=== PATIENT | male | born 1930 | race Hispanic/Latino ===

== ENCOUNTER 2017-10-28 17:25 | Inpatient (IN) | payer MEDICARE ==
[2017-10-28 18:16] LABS: #Eosinphils 0.2 thou/uL (0.0-0.7); #Lymphocytes 1.7 thou/uL (1.20-3.40); #Monocytes 0.4 thou/uL (0.11-0.59); #Neutrophils 3.5 thou/uL (1.40-6.50); %Basophils 0.2 % (0.0-1.0); %Lymphocytes 29.6 % (21.0-51.0); %Monocytes 6.5 % (0.0-10.0); Hematocrit 33.7 % (42.0-52.0); Mean Platelet Volume 7.5 fL (7.4-10.4); White Blood Cell (WBC) Count 5.8 thou/uL (4.8-10.8)
[2017-10-28] MEDS ORDERED: Adacel (T-DAP) 0.5 ML VIAL ONE (18:21)
[2017-10-28] MEDS ORDERED: Lidocaine 1% (PF) 30 ML VIAL ONE (18:21)
[2017-10-28 18:24] LABS: PTT 34.8 SEC (22.9-36.1); Prothrombin Time 14.2 SEC (12.0-14.7)
[2017-10-28 18:42] LABS: ALT (SGPT) 12 U/L (8-55); AST (SGOT) 20 U/L (5-34); Alkaline Phosphatase 138 U/L (40-150); Anion Gap 12 mmol/L (10-20); BUN (Urea Nitrogen) 42 mg/dL (8.4-25.7); Bilirubin, Total 0.4 mg/dL (0.2-1.2); Calc. Creatinine Clearance 0 mL/min (70-130); Calcium 8.8 mg/dL (7.8-10.44); Carbon Dioxide 22 mmol/L (23-31); Chloride 109 mmol/L (98-107); Estimated GFR-MDRD 27; Globulin 3.8 g/dL (2.4-3.5); Protein, Total 7.5 g/dL (5.8-8.1)
[2017-10-28 18:47] LABS: Troponin I 0.013 ng/mL (< 0.028)
--- NOTE | 2017-10-28 19:34 | CT ---
HISTORY: Syncope and fall. NONCONTRAST ENHANCED CT IMAGES BRAIN 10/28/[address] images of the brain demonstrate a right frontal scalp hematoma. No underlying calvarial fracture seen. No evidence of intracranial masses or lesions seen. Cortical atrophy and de ep white matter ischemic change is seen. There is also some cerebellar atrophy present. IMPRESSION: Right frontal scalp hematoma. POS: [facility]
--- NOTE | 2017-10-28 19:49 | RAD ---
AP VIEW CHEST 10/28/17 HISTORY: 87-year-old male with history of syncope. AP view chest is obtained on 10/28/17. COMPARISON: Comparison made to previous exam from 02/24/15. AP view chest demonstrates sternotomy wires seen. Calcification and ectasia of the aorta is seen. The lungs are well aerated. No evidence of active intrathoracic disease seen. No evidence of effusions, pneumonia or pneumothorax seen. 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 IMPRESSION: No evidence of acute intrathoracic abnormality. POS: [facility]
[2017-10-28] MEDS ORDERED: hydrALAZINE 20 MG/ML VIAL ONE (20:39)
--- NOTE | 2017-10-28 21:24 | CT ---
CT CERVICAL SPINE 10/28/17 HISTORY: 87-year-old with history of fall. Facial laceration. Hit head on a table. Axial images are obtained with coronal and sagittal reconstructions. Images demonstrate partially calcified pannus involving the posterior aspect of the odontoid. No evid ence of acute fracture is seen. Disc space height loss is seen with anterior and posterior osteophyte s at the C3-4 level. There is minimal anterolisthesis of C4 on C5. There is cervical spine fusion anteriorly and posteriorly at C5-6. Anterior bridging osteophytes also seen at C6-7 and C7-T1. Multilevel central cervical facet hypertrophic and degenerative changes also seen. IMPRESSION: No evidence of acute cervical spine fractures. Multilevel cervical degenerative changes seen involvin g facets and intervertebral disc spaces. Also noted is a small right sided pleural effusion. POS: [facility]
--- NOTE | 2017-10-28 21:39 | PDOC.EVN ---
Event Note - Event Note Event Note: [id number] H&P Dictated 1. Syncope 2. HTN 3. HPL 4. Hypothyroidism plan: see orders
[2017-10-28 21:42] LABS: Troponin I 0.019 ng/mL (< 0.028)
[2017-10-28] MEDS ORDERED: Acetaminophen 325 MG TAB PO PRN (21:42)
[2017-10-28] MEDS ORDERED: Ondansetron HCl/PF 4 MG/2 ML Vial IVP PRN (21:42)
[2017-10-28] MEDS ORDERED: Ondansetron ODT 4 MG TAB SL PRN (21:42)
[2017-10-28] MEDS ORDERED: cloNIDine 0.2 MG TAB PO PRN (22:45)
[2017-10-28] MEDS: Sodium Chloride 0.9% 1,000 ML IV SCH (23:28)
--- NOTE | 2017-10-28 23:59 | ULT ---
CAROTID DOPPLER ULTRASOUND EVALUATION: 10/28/17 HISTORY: Patient with carotid stenosis and bruits. Carotid doppler ultrasound evaluation was performed. Real time, color flow with spectral waveform dop pler analysis used to evaluate the carotid arteries. There is diffuse intimal thickening involving the right and left common and internal carotid arteries . Flow velocities are not significantly increased. Findings suggestive of approximately 20% bilateral distal CCA and proximal ICA stenosis. No evidence of significant carotid stenosis is noted. Antegrad e flow is seen in both vertebral arteries. 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 No evidence of increased flow velocities or significant high grade stenosis is seen. POS: [facility]
[2017-10-29 01:06] LABS: Troponin I 0.023 ng/mL (< 0.028)
[2017-10-29] MEDS: Levothyroxine Sodium 100 MCG TAB PO SCH (05:35)
--- NOTE | 2017-10-29 06:14 | HP ---
DATE OF ADMISSION: 10/28/2017 CHIEF COMPLAINT: Syncope. HISTORY OF PRESENT ILLNESS: The patient is an 87-year-old male with past medical history of hypertension, CKD, hypothyroidism, hyperlipidemia, now came to the ER complaining of syncope. The patient said he was at home, putting his cloths while sitting on the bed, and all of sudden he fell forward, lost consciousness, the whole episode lasted only a few seconds. Once he regained consciousness, he is not confused, but the patient does not know what happened. Denies any chest pain, denies any palpitations. Prior to passing out, the patient said he felt lightheaded and he fell forward. Upon ER arrival, the patient was found to have right forehead laceration, so the patient had sutures placed. The patient denies any headache. Denies any dizziness. Denies any lightheadedness at this time. Complaints of mild headache prior from the fall, but denies any new complaints at this time. PAST MEDICAL HISTORY: As per HPI. PAST SURGICAL HISTORY: CABG. FAMILY HISTORY: Positive for heart problems. SOCIAL HISTORY: Denies smoking, denies alcohol, denies any drugs. MEDICATIONS: Reviewed. ALLERGIES: Reviewed. REVIEW OF SYSTEMS: Constitutional: Denies any fever, denies any chills. Eyes : Denies any vision problems. Ears: Denies any hearing loss. Neck: Denies any neck pain. Cardiovascular system: Denies any chest pain. Respiratory system: Denies any cough, denies sputum production. Gastrointestinal: Denies nausea or vomiting. Musculoskeletal: Denies any joint deformities. Cranial nerve system: Positive for syncope. Face: Positive for fall and scalp laceration. Cranial nerve system: Positive for headache. Psychiatric: Denies depression or anxiety. All other review of systems are reviewed and are negative. PHYSICAL EXAMINATION: CONSTITUTIONAL/VITAL SIGNS: At the time of H&P performed, blood pressure 180/90 , afebrile, respiratory rate 18. GENERAL APPEARANCE: This patient appears tired. HEENT: Anterior nares patent. Nose normal. Teeth intact. Tongue is moist. NECK: Supple, no JVD. CARDIOVASCULAR SYSTEM: S1, S2 present. Regular rate and rhythm. No murmurs, no rubs, no gallops. CHEST: Old healed scar present. RESPIRATORY SYSTEM: No wheezing, no rhonchi. normal effort, breath sounds present bilaterally. FACE: On the right forehead, positive for laceration, positive for sutures present. Right face, small ecchymosis seen. PSYCHIATRIC: Mood is appropriate at this time. INTEGUMENTARY: Positive for right face bruising. MUSCULOSKELETAL: No edema. LABORATORY DATA: At the time of H&P performed, white count 5.8, hemoglobin 10.8 , platelet count is 208. PT 14.2, INR 1.1. BMP showed sodium 138, potassium 4.5, chloride 109, CO2 of 22, BUN of 42, creatinine 2.30. Baseline creatinine is around 1.5 in 2016. BNP 525. ASSESSMENT AND PLAN: The patient is an 87-year-old male. 1. Syncope, need to rule out cardiac etiology. Plan to check cardiac enzymes. Plan to consult Cardiology and Neurology to evaluate the patient. Plan to monitor the patient closely. 2. History of hypertension. Monitor blood pressures, continue blood pressure medications. 3. Acute kidney injury versus chronic kidney disease, stage 3. Monitor creatinine. Gentle IV fluids. Repeat BMP in a.m. BNP is elevated. Monitor closely. It does not appear fluid overloaded at this time. 4. History of hypothyroidism. Continue levothyroxine. 5. History of hyperlipidemia. Continue statin. The case was discussed in detail with the patient. NUBIA
[2017-10-29 06:25] LABS: Troponin I 0.023 ng/mL (< 0.028)
[2017-10-29] MEDS ORDERED: Heparin 5,000 UNITS/ML VIAL SC SCH (09:00)
[2017-10-29] MEDS ORDERED: Atenolol 25 MG TAB PO SCH (09:00)
[2017-10-29 09:12] LABS: Anion Gap 10 mmol/L (10-20); BUN (Urea Nitrogen) 40 mg/dL (8.4-25.7); Calc. Creatinine Clearance 29 mL/min (70-130); Calcium 8.5 mg/dL (7.8-10.44); Carbon Dioxide 21 mmol/L (23-31); Chloride 111 mmol/L (98-107); Estimated GFR-MDRD 36
[2017-10-29 09:17] LABS: #Eosinphils 0.2 thou/uL (0.0-0.7); #Lymphocytes 1.5 thou/uL (1.20-3.40); #Monocytes 0.4 thou/uL (0.11-0.59); #Neutrophils 3.2 thou/uL (1.40-6.50); %Basophils 0.6 % (0.0-1.0); %Eosinophils 4.4 % (0.0-10.0); %Lymphocytes 28.1 % (21.0-51.0); %Monocytes 6.9 % (0.0-10.0); Hematocrit 28.6 % (42.0-52.0); Mean Platelet Volume 7.8 fL (7.4-10.4); White Blood Cell (WBC) Count 5.4 thou/uL (4.8-10.8)
[2017-10-29] MEDS: Aspirin 81 mg Enteric Coated Tablet PO SCH (09:47)
--- NOTE | 2017-10-29 12:33 | PDOC.PN ---
- Subjective Encounter Start Date: 10/29/17 Encounter Start Time: 08:00 Pt seen for followup re: syncope. Denies chest pain, shortness of breath, fevers or chills. - Objective MAR Reviewed: Yes Vital Signs & Weight: Vital Signs (12 hours) Temp Pulse Resp BP Pulse Ox 10/29/17 11:00 97.7 F 50 L 18 139/66 98 10/29/17 10:22 51 L 10/29/17 07:20 98.5 F 53 L 18 129/63 99 10/29/17 04:00 97.5 F L 53 L 20 152/65 H 100 10/29/17 01:34 124/55 L Weight Weight 160 lb I&O: 10/28/17 10/29/17 10/30/17 06:59 06:59 06:59 Intake Total 543 Output Total 550 Balance -7 Result Diagrams: 10/29/17 05:43 10/29/17 05:43 EKG Reviewed by me: Yes (Tele: jaki gtz) Phys Exam - Physical Examination Constitutional: NAD HEENT: PERRLA, moist MMs, sclera anicteric, oral pharynx no lesions Neck: no nodes, no JVD, supple, full ROM Respiratory: no wheezing, no rales, no rhonchi, clear to auscultation bilateral Cardiovascular: RRR, no rub Gastrointestinal: soft, non-tender, no distention, positive bowel sounds Musculoskeletal: pulses present Neurological: moves all 4 limbs Lymphatic: no nodes Psychiatric: normal affect, A&O x 3 Skin: no rash, normal turgor, cap refill <2 seconds Dx/Plan (1) Syncope Code(s): R55 - SYNCOPE AND COLLAPSE Status: Acute (2) HTN (hypertension) Code(s): I10 - ESSENTIAL (PRIMARY) HYPERTENSION Status: Chronic (3) CKD (chronic kidney disease) Code(s): N18.9 - CHRONIC KIDNEY DISEASE, UNSPECIFIED Status: Chronic (4) Dyslipidemia Code(s): E78.5 - HYPERLIPIDEMIA, UNSPECIFIED Status: Chronic (5) CAD (coronary artery disease) Code(s): I25.10 - ATHSCL HEART DISEASE OF [place] CORONARY ARTERY W/O ANG PCTRS Status: Chronic - Plan plan discussed w/ family, DVT proph w/SCDs * . Workup in progress for syncope. Await neurology, cardiology consults. Await 2D echo. Check orthostatic vitals. Review of Systems - Review of Systems Constitutional: negative: Fever, Chills, Sweats, Weakness, Malaise Respiratory: negative: Cough, Dry, Shortness of Breath, Hemoptysis, SOB with Excertion, Pleuritic Pain, Sputum, Wheezing Cardiovascular: negative: Chest Pain, Palpitations, Orthopnea, Paroxysmal Noc. Dyspnea, Edema, Light Headedness Gastrointestinal: negative: Nausea, Vomiting, Abdominal Pain, Diarrhea, Constipation, Melena, Hematochezia Genitourinary: negative: Dysuria, Frequency, Incontinence, Hematuria, Retention Neurological: Other (syncope) - Medications/Allergies Allergies/Adverse Reactions: Allergies Allergy/AdvReac Type Severity Reaction Status Date / Time No Known Allergies Allergy Verified 02/25/15 00:25 Medications: Current Medications Aspirin (Ecotrin) 81 mg PO DAILY [facility] Last Admin: 10/29/17 09:47 Dose: 81 mg Atenolol (Tenormin) 25 mg PO DAILY [facility] Last Admin: 10/29/17 10:22 Dose: Not Given Atorvastatin Calcium (Lipitor) 40 mg PO HS [facility] Clonidine (Catapres) 0.1 mg PO HS [facility] Clonidine (Catapres) 0.2 mg PO Q8H PRN PRN Reason: FOR SBP > 160 Last Admin: 10/28/17 23:27 Dose: 0.2 mg Heparin Sodium (Porcine) (Heparin) 5,000 units SC Q12HR [facility] Last Admin: 10/29/17 10:23 Dose: Not Given Sodium Chloride (Normal Saline 0.9%) 1,000 mls @ 50 mls/hr IV .Q20H [facility] Last Admin: 10/28/17 23:28 Dose: 1,000 mls Levothyroxine Sodium (Synthroid) 100 mcg PO 0600 [facility] Last Admin: 10/29/17 05:35 Dose: 100 mcg Mirtazapine (Remeron) 15 mg PO HS [facility]
--- NOTE | 2017-10-29 17:45 | MRI ---
MRI OF THE BRAIN WITHOUT CONTRAST 10/29/17 COMPARISON: None. HISTORY: Stroke. TECHNIQUE: Multiplanar and multisequence MRI images were obtained of the brain without contrast. FINDINGS: There are a few scattered foci of high T2/FLAIR signal and subcortical and periventricular white jose er, likely secondary to small vessel ischemic disease. No restricted diffusion is seen to suggest an acute infarction. There is no evidence of hydrocephalus, intracranial hemorrhage, or extra-axial flui d collection. The expected flow voids are present. The corpus callosum, pituitary, and craniocervical junction are unremarkable. The calvarium and overlying soft tissues are unremarkable. There is no evidence of opacification of t he paranasal sinuses or mastoid air cells. IMPRESSION: Mild small vessel ischemic disease without acute intracranial abnormality. POS: [facility]
--- NOTE | 2017-10-29 18:46 | CON ---
DATE OF CONSULTATION: 10/29/2017 REASON FOR CONSULTATION: Syncope and bradycardia. HISTORY OF PRESENT ILLNESS: Mr. Florez is a pleasant 87-year-old gentleman, who is a patient of Dr. Ehsan Funk. He recently states he had a syncopal episode. Denied any syncope in the past. His son is present during the discussion and states he has not taken any of his medications over the las t month. His medications do reflect clonidine and atenolol, which can cause bradycardia, but again m edicines have absent over the last one month. His syncopal episode there was no warning. No chest p ain or pressure or other associated symptoms. He does have a history of CAD, status post bypass surg dave. PAST MEDICAL HISTORY: Chronic kidney disease, hypertension, hypothyroidism, CAD, hyperlipidemia, sta tus post bypass surgery. SOCIAL HISTORY: No current tobacco or alcohol use. MEDICATIONS: None over the last one month. REVIEW OF SYSTEMS: Ten point review of systems is reviewed and is as above negative. PHYSICAL EXAMINATION: VITAL SIGNS: Blood pressure 165/71, pulse 50, temperature 97.7. GENERAL: Patient is a pleasant male who is in no acute distress. The patient appears his/her stated age. VITAL SIGNS: NEUROLOGIC: The patient is alert and oriented times 3 with no focal neurologic deficits. HEENT: Sclerae without icterus. Mouth has moist mucous membranes with normal pallor. NECK: No JVD. Carotid upstroke brisk. No bruits bilaterally. LUNGS: Clear to auscultation with unlabored respirations. BACK: No scoliosis or kyphosis. CARDIAC: Regular rate and rhythm with normal S1 and S2. No S3 or S4 noted. No significant rubs, murmurs, thrills, or gallops noted throughout the precordium. PMI is not displaced. There is no parasternal heave. ABDOMEN: Soft, nontender, nondistended. No peritoneal signs present. No hepatosplenomegaly. No abnormal striae. EXTREMITIES: 2+ femoral and 2+ dorsalis pedis pulses. No cyanosis, clubbing, or edema. SKIN: No gross abnormalities. Telemetry monitoring shows marked bradycardia. PERTINENT LABS: Hemoglobin 9.4, creatinine 1.8 with a GFR of 36. BNP of 525. Echo and Doppler pending. IMPRESSION: Syncope. RECOMMENDATIONS: Mr. Florez appears to have bradycardia noted on telemetry monitoring. He is on ulices nidine and atenolol, but he states he has not taken over the last month. Unfortunately, Dr. Talbot restarted his clonidine and atenolol and he has been bradycardic on the monitor with heart rate in t he 30s and 40s. At this point, we will discontinue clonidine and atenolol. We will keep n.p.o. to a ssess for any further dysrhythmias. He may need pacemaker if this continued despite beta hattie the rapy and being off beta hattie therapy and clonidine.
--- NOTE | 2017-10-29 20:15 | CON ---
DATE OF CONSULTATION: 10/29/2017 REFERRING PROVIDER: Tong Talbot MD REASON FOR CONSULTATION: Syncope. HISTORY OF PRESENT ILLNESS: Mr. Florez is a pleasant 87-year-old male who has been consulte d for evaluation of syncope. The patient reports that he was at home trying to put on his clothes. He had put on his pants and sat down and then when he stood up, he suddenly passed out and fall to th e ground. He was unconscious for less than 30 seconds. There were no convulsions noted. There was no tongue biting noted. No loss of bladder control noted. He had no postictal confusion. His son prabha reyes witnessed the event and brought into the hospital as he had lacerated his right side of the forehe ad and had a lot of bleeding from that area for which he required sutures. On arrival here, he repor ts he has no prior history of seizure disorder. No prior history of trauma or family history of seiz ures. PAST MEDICAL HISTORY: Significant for hypertension, chronic kidney disease, hypothyroidism, and hype rlipidemia. PAST SURGICAL HISTORY: Significant for previous CABG. FAMILY HISTORY: Significant for heart problems. SOCIAL HISTORY: He denies smoking, alcohol use, or illicit drug use. CURRENT MEDICATIONS: Please review MAR. ALLERGIES: No known drug allergies. REVIEW OF SYSTEMS: As mentioned above in the HPI, otherwise negative. PHYSICAL EXAMINATION: VITAL SIGNS: Blood pressure of 165/71, orthostatic vitals were obtained, which showed blood pressure of 165/71 at supine, 143/62 at sitting, and then 122/58 at standing position, pulse of 57, temperatu re of 97.3, respirations of 16, O2 sats 99% on room air. GENERAL: Well-developed, well-nourished male, in no apparent distress. RESPIRATORY: Clear to auscultation bilaterally. CARDIOVASCULAR: Regular rate and rhythm. NEUROLOGIC: Mental status: The patient is awake, alert, oriented x3. Speech and language: Fluent speech. Cranial nerves: Pupils are 3 mm and reactive. Visual felix are intact. Extraocular muscl es are intact. No nystagmus is noted. Face is symmetric. Tongue and uvula are midline. Motor exam showed normal tone and bulk with 5/5 strength in both upper and lower extremities. Babinski: Plant ar response is flexion bilaterally. Coordination intact to [id number] tapping bilaterally. LABORATORY DATA: Reviewed, which included CBC, coag panel, CMP, lipid profile, troponin, CK-MB, BNP which is significant for hemoglobin 9.4, hematocrit 28.6, BUN of 40, creatinine 1.1. BNP of 525.8, o therwise unremarkable. IMAGING STUDIES: MRI brain without contrast was reviewed. Official report is pending; however, on m y evaluation showed no acute intracranial abnormality. IMPRESSION: Syncope. PLAN: Mr. Florez is a pleasant 87-year-old male who presented with the episode of syncope. Based on the description, this is likely vasovagal in origin. He had orthostatic vitals done today, which showed significant drop in blood pressure when going from supine to standing position, this co uld be consistent with vasovagal syncope. At this time, there are no further neurological workup drew carvajal from my standpoint.
[2017-10-29] MEDS ORDERED: cloNIDine 0.1 MG TAB PO SCH (21:00)
[2017-10-29] MEDS: Atorvastatin Calcium 40 MG TAB PO SCH (21:39)
[2017-10-29] MEDS: Sodium Chloride 0.9% 1,000 ML IV SCH (21:39)
[2017-10-29] MEDS: Mirtazapine 15 MG TAB PO SCH (21:39)
[2017-10-30 04:44] LABS: #Eosinphils 0.3 thou/uL (0.0-0.7); #Lymphocytes 1.4 thou/uL (1.20-3.40); #Monocytes 0.4 thou/uL (0.11-0.59); #Neutrophils 3.6 thou/uL (1.40-6.50); %Basophils 0.2 % (0.0-1.0); %Eosinophils 5.1 % (0.0-10.0); %Monocytes 6.3 % (0.0-10.0); Hematocrit 29.4 % (42.0-52.0); Mean Platelet Volume 7.3 fL (7.4-10.4); Red Blood Cell (RBC) Count 2.89 mill/uL (4.70-6.10); White Blood Cell (WBC) Count 5.7 thou/uL (4.8-10.8)
[2017-10-30 05:03] LABS: Anion Gap 9 mmol/L (10-20); BUN (Urea Nitrogen) 38 mg/dL (8.4-25.7); Calc. Creatinine Clearance 32 mL/min (70-130); Calcium 8.6 mg/dL (7.8-10.44); Carbon Dioxide 22 mmol/L (23-31); Chloride 112 mmol/L (98-107); Estimated GFR-MDRD 40
[2017-10-30] MEDS: Levothyroxine Sodium 100 MCG TAB PO SCH (06:05)
[2017-10-30] MEDS: Aspirin 81 mg Enteric Coated Tablet PO SCH ×2 (09:48→14:21)
--- NOTE | 2017-10-30 10:12 | PDOC.PN ---
- Subjective Encounter Start Date: 10/30/17 Encounter Start Time: 07:20 Pt seen for followup re: syncope. Denies chest pain, shortness of breath. No dizziness. - Objective MAR Reviewed: Yes Vital Signs & Weight: Vital Signs (12 hours) Temp Pulse Resp BP Pulse Ox 10/30/17 09:55 98.6 F 80 16 158/85 H 98 10/30/17 04:25 98 10/30/17 04:00 99.2 F 68 20 161/74 H 98 10/30/17 00:40 99 10/30/17 00:00 98.6 F 59 L 18 170/77 H 99 Weight Weight 158 lb 8 oz I&O: 10/29/17 10/30/17 10/31/17 06:59 06:59 06:59 Intake Total 543 741 Output Total 550 600 Balance -7 141 Result Diagrams: 10/30/17 04:11 10/30/17 04:11 EKG Reviewed by me: Yes (Tele: a. tresa) Phys Exam - Physical Examination Constitutional: NAD HEENT: PERRLA, moist MMs, sclera anicteric, oral pharynx no lesions Neck: no nodes, no JVD, supple, full ROM Respiratory: no wheezing, no rales, no rhonchi, clear to auscultation bilateral Cardiovascular: no rub, irregular Gastrointestinal: soft, non-tender, no distention, positive bowel sounds Musculoskeletal: pulses present Neurological: non-focal, normal sensation, moves all 4 limbs Psychiatric: normal affect, A&O x 3 Skin: no rash, normal turgor, cap refill <2 seconds Deviation from normal: Sutured laceration above R eye Dx/Plan (1) Syncope Code(s): R55 - SYNCOPE AND COLLAPSE Status: Acute (2) HTN (hypertension) Code(s): I10 - ESSENTIAL (PRIMARY) HYPERTENSION Status: Chronic (3) CKD (chronic kidney disease) Code(s): N18.9 - CHRONIC KIDNEY DISEASE, UNSPECIFIED Status: Chronic (4) Dyslipidemia Code(s): E78.5 - HYPERLIPIDEMIA, UNSPECIFIED Status: Chronic (5) CAD (coronary artery disease) Code(s): I25.10 - ATHSCL HEART DISEASE OF [place] CORONARY ARTERY W/O ANG PCTRS Status: Chronic - Plan PT/OT, DVT proph w/SCDs * . Heart rate improved, pt's atenolol on hold. Pt has orthostatic hypotension, check 8 AM cortisol level. Apply compression stockings. Monitor on telemetry. Monitor vital signs, titrate antihypertensives as needed. Creatinine improving. Review of Systems - Review of Systems Constitutional: negative: Fever, Chills, Sweats, Weakness, Malaise Respiratory: negative: Cough, Dry, Shortness of Breath, Hemoptysis, SOB with Excertion, Pleuritic Pain, Sputum, Wheezing Cardiovascular: negative: Chest Pain, Palpitations, Orthopnea, Paroxysmal Noc. Dyspnea, Edema, Light Headedness Gastrointestinal: negative: Nausea, Vomiting, Abdominal Pain, Diarrhea, Constipation, Melena, Hematochezia Genitourinary: negative: Dysuria, Frequency, Incontinence, Hematuria, Retention - Medications/Allergies Allergies/Adverse Reactions: Allergies Allergy/AdvReac Type Severity Reaction Status Date / Time No Known Allergies Allergy Verified 02/25/15 00:25 Medications: Current Medications Aspirin (Ecotrin) 81 mg PO DAILY [facility] Last Admin: 10/30/17 09:48 Dose: 81 mg Atorvastatin Calcium (Lipitor) 40 mg PO HS [facility] Last Admin: 10/29/17 21:39 Dose: 40 mg Clonidine (Catapres) 0.2 mg PO Q8H PRN PRN Reason: FOR SBP > 160 Last Admin: 10/28/17 23:27 Dose: 0.2 mg Sodium Chloride (Normal Saline 0.9%) 1,000 mls @ 50 mls/hr IV .Q20H [facility] Last Admin: 10/29/17 21:39 Dose: 1,000 mls Levothyroxine Sodium (Synthroid) 100 mcg PO 0600 [facility] Last Admin: 10/30/17 06:05 Dose: 100 mcg Mirtazapine (Remeron) 15 mg PO HS [facility] Last Admin: 10/29/17 21:39 Dose: 15 mg Sodium Chloride (Flush - Normal Saline) 10 ml IVF Q12HR [facility] Last Admin: 10/30/17 09:48 Dose: 10 ml Sodium Chloride (Flush - Normal Saline) 10 ml IVF PRN PRN PRN Reason: Saline Flush
[2017-10-30] MEDS ORDERED: Acetaminophen 650 MG Suppository PR PRN (11:26)
[2017-10-30] MEDS ORDERED: Acetaminophen 650 MG Suppository PR SCH (12:00)
[2017-10-30] MEDS ORDERED: hydrALAZINE 20 MG/ML VIAL SLOW IVP SCH (14:30)
[2017-10-30] MEDS ORDERED: CEFAZOLIN 1 GM VIAL ONE (16:06)
[2017-10-30] MEDS ORDERED: CEFAZOLIN/Water 2 GM/20 ML SYRINGE ONE (16:07)
[2017-10-30] MEDS ORDERED: Gentamicin 80 MG/2 ML VIAL ONE (16:50)
--- NOTE | 2017-10-30 16:56 | PDOC.CTH ---
Cardiology Progress Note - Subjective He is doing well. No more episode of syncope or presyncope. - Objective Vital Signs Temp Pulse Resp BP BP BP BP 10/30/17 15:08 98.5 F 84 17 166/74 H 10/30/17 14:40 86 141/84 H 10/30/17 12:53 186/87 H 181/77 H 187/87 H 10/30/17 11:17 97.9 F 72 17 173/83 H 10/30/17 09:55 98.6 F 80 16 158/85 H 10/30/17 08:22 98.6 F 80 16 Pulse Ox 10/30/17 15:08 100 10/30/17 14:40 10/30/17 12:53 10/30/17 11:17 100 10/30/17 09:55 98 10/30/17 08:22 Weight 158 lb 8 oz 10/29/17 10/30/17 10/31/17 06:59 06:59 06:59 Intake Total 543 741 Output Total 550 600 Balance -7 141 - Physical Examination General/Neuro: alert & oriented x3, NAD Neck: no JVD present Lungs: CTA, unlabored respirations Heart: RRR Abdomen: NT/ND Extremities: + edema B (no edema.) - Telemetry Telemetry Rhythm: NSR - Labs Result Diagrams: 10/30/17 04:11 10/30/17 04:11 Troponin/CKMB CK-MB (CK-2) 1.3 ng/mL (0-6.6) 10/28/17 18:00 Troponin I 0.023 ng/mL (< 0.028) 10/29/17 05:44 - Assessment/Plan 1. Syncope. 2. Afib, new onset, new diagnosis. 3. Tachy/New syndrome. 4. Aortic stenosis, Mild on echo . BLOOD: - He had profound symptomatic bradycardia when started on BB. He also has now been diagnosed with afib which is a new diagnosis. He has documented sinus rhythm on last ER visit in 2014. - He is a candidate for a PPM at this time with his tachy/New syndrome. - Will ask Dr. Johnston to place this today. - I spoke with patient about risks and benefits and he agrees to proceed. - once PPM in place will start full anticoagulation and will talk about possible cardioversion.
[2017-10-30] MEDS: Sodium Chloride 0.9% 1,000 ML IV SCH (18:40)
--- NOTE | 2017-10-30 19:54 | RAD ---
AP VIEW CHEST: 10/30/17 HISTORY: Post cardiac device placement. AP view chest is obtained on 10/30/17. Comparison made to previous exam from 10/28/17. AP view chest demonstrates sternotomy wires seen. Calcification of the aorta is normal. Ectasia of th e aorta is also present. Some mild pulmonary vascular congestion is seen. There has been placement of a dual lead left subclavian pacing device. No evidence of effusions or pneumonia seen. Bilateral real ulder osteoarthritic changes seen. IMPRESSION: 1. Calcification of the aorta, otherwise unremarkable AP view chest. 2. Bilateral shoulder osteoarthritic changes. POS: [facility]
[2017-10-30] MEDS: Atorvastatin Calcium 40 MG TAB PO SCH (20:21)
[2017-10-30] MEDS: Mirtazapine 15 MG TAB PO SCH (20:21)
--- NOTE | 2017-10-30 23:45 | CCL ---
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 He was advised to undergo dual-chamber pacemaker insertion. He did hav e a history of what appears to be sinus rhythm when he came to the hospital, but then developed into atrial fibrillation and flutter. At this time, we would anticipate trying to convert the patient joaquin k to a sinus rhythm in the future with medical management or cardioversion. His left atrial size is 4.5 cm. He may be a reasonable candidate for electrical cardioversion or [facility] management of the atrial fibrillation. Hopefully back to a sinus rhythm and for that reason he was implanted with a dual-chamber pacemaker. There were no complications or difficulties encountered . The full dictated noted in the chart. He was implanted with a [employer] Adapta dual chamber pacem chris with two screw in leads, one in the atrium and one in the ventricle. There were no complication s or difficulties encountered. The pacemaker was set with the upper rate of 120 and the lower rate w as set at 60.
[2017-10-31 04:52] LABS: #Eosinphils 0.3 thou/uL (0.0-0.7); #Lymphocytes 1.5 thou/uL (1.20-3.40); #Monocytes 0.6 thou/uL (0.11-0.59); #Neutrophils 4.2 thou/uL (1.40-6.50); %Basophils 0.7 % (0.0-1.0); %Eosinophils 4.1 % (0.0-10.0); %Lymphocytes 22.6 % (21.0-51.0); Hematocrit 30.6 % (42.0-52.0); Mean Platelet Volume 7.4 fL (7.4-10.4); Red Blood Cell (RBC) Count 3.02 mill/uL (4.70-6.10); White Blood Cell (WBC) Count 6.6 thou/uL (4.8-10.8)
[2017-10-31 05:05] LABS: Anion Gap 10 mmol/L (10-20); BUN (Urea Nitrogen) 34 mg/dL (8.4-25.7); Calc. Creatinine Clearance 34 mL/min (70-130); Calcium 8.8 mg/dL (7.8-10.44); Carbon Dioxide 22 mmol/L (23-31); Chloride 111 mmol/L (98-107); Estimated GFR-MDRD 43
[2017-10-31] MEDS: Levothyroxine Sodium 100 MCG TAB PO SCH (05:26)
[2017-10-31 05:47] VITALS: BMI 25.7
--- NOTE | 2017-10-31 09:04 | PDOC.PN ---
- Subjective Encounter Start Date: 10/31/17 Encounter Start Time: 07:20 Pt seen for followup re: syncope. Denies chest pain, shortness of breath. Denies dizziness. - Objective MAR Reviewed: Yes Vital Signs & Weight: Vital Signs (12 hours) Temp Pulse Resp BP BP Pulse Ox 10/31/17 05:12 98.1 F 94 22 H 172/81 H 97 10/31/17 00:30 88 18 173/79 H 97 Weight Weight 164 lb 4.8 oz I&O: 10/30/17 10/31/17 11/01/17 06:59 06:59 06:59 Intake Total 741 1260 Output Total 600 1550 Balance 141 -290 Result Diagrams: 10/31/17 04:24 10/31/17 04:24 EKG Reviewed by me: Yes (Tele: electronic A paced) Phys Exam - Physical Examination Constitutional: NAD HEENT: moist MMs Neck: supple Respiratory: clear to auscultation bilateral Cardiovascular: RRR Gastrointestinal: soft Neurological: moves all 4 limbs Psychiatric: normal affect Skin: no rash Dx/Plan (1) Syncope Code(s): R55 - SYNCOPE AND COLLAPSE Status: Acute (2) Symptomatic bradycardia Code(s): R00.1 - BRADYCARDIA, UNSPECIFIED Status: Acute (3) New onset a-fib Code(s): I48.91 - UNSPECIFIED ATRIAL FIBRILLATION Status: Acute (4) HTN (hypertension) Code(s): I10 - ESSENTIAL (PRIMARY) HYPERTENSION Status: Chronic (5) CKD (chronic kidney disease) Code(s): N18.9 - CHRONIC KIDNEY DISEASE, UNSPECIFIED Status: Chronic (6) Dyslipidemia Code(s): E78.5 - HYPERLIPIDEMIA, UNSPECIFIED Status: Chronic (7) CAD (coronary artery disease) Code(s): I25.10 - ATHSCL HEART DISEASE OF [place] CORONARY ARTERY W/O ANG PCTRS Status: Chronic - Plan PT/OT, out of bed/ambulate * . s/p PPM placement. Ambulate pt. Cardiology service following. Review of Systems - Review of Systems Constitutional: negative: Fever, Chills, Sweats, Weakness, Malaise Respiratory: negative: Cough, Dry, Shortness of Breath, Hemoptysis, SOB with Excertion, Pleuritic Pain, Sputum, Wheezing Cardiovascular: negative: Chest Pain, Palpitations, Orthopnea, Paroxysmal Noc. Dyspnea, Edema, Light Headedness - Medications/Allergies Allergies/Adverse Reactions: Allergies Allergy/AdvReac Type Severity Reaction Status Date / Time No Known Allergies Allergy Verified 02/25/15 00:25 Medications: Current Medications Acetaminophen (Tylenol) 650 mg HI Q6H PRN PRN Reason: Headache/Fever or Pain Amiodarone HCl (Cordarone) 400 mg PO TID [facility] Last Admin: 10/30/17 20:21 Dose: 400 mg Aspirin (Ecotrin) 81 mg PO DAILY [facility] Last Admin: 10/30/17 14:21 Dose: Not Given Atorvastatin Calcium (Lipitor) 40 mg PO HS [facility] Last Admin: 10/30/17 20:21 Dose: 40 mg Clonidine (Catapres) 0.2 mg PO Q8H PRN PRN Reason: FOR SBP > 160 Last Admin: 10/28/17 23:27 Dose: 0.2 mg Levothyroxine Sodium (Synthroid) 100 mcg PO 0600 [facility] Last Admin: 10/31/17 05:26 Dose: 100 mcg Mirtazapine (Remeron) 15 mg PO HS [facility] Last Admin: 10/30/17 20:21 Dose: 15 mg Sodium Chloride (Flush - Normal Saline) 10 ml IVF Q12HR [facility] Last Admin: 10/30/17 20:22 Dose: 10 ml Sodium Chloride (Flush - Normal Saline) 10 ml IVF PRN PRN PRN Reason: Saline Flush
[2017-10-31] MEDS: Aspirin 81 mg Enteric Coated Tablet PO SCH (09:29)
[2017-10-31 14:09] VITALS: TEMP 98.7
--- NOTE | 2017-10-31 14:33 | PDOC.CTH ---
Cardiology Progress Note - Subjective He had his pacer place yesterday without issues. - Objective Vital Signs Temp Pulse Pulse Pulse Resp BP BP 10/31/17 13:10 98.7 F 70 18 10/31/17 10:29 105 H 72 125/71 172/73 H 10/31/17 09:25 99.2 F 71 14 10/31/17 09:20 99.2 F 71 14 10/31/17 05:12 98.1 F 94 22 H BP BP BP Pulse Ox Pulse Ox Pulse Ox 10/31/17 13:10 130/62 100 10/31/17 10:29 98 96 10/31/17 09:25 131/65 99 10/31/17 09:20 99 10/31/17 05:12 172/81 H 97 Weight 164 lb 4.8 oz 10/30/17 10/31/17 11/01/17 06:59 06:59 06:59 Intake Total 741 1260 Output Total 600 1550 Balance 141 -290 - Physical Examination General/Neuro: alert & oriented x3, NAD Neck: no JVD present Lungs: CTA, unlabored respirations Heart: other: (irreg) Abdomen: NT/ND Extremities: other: (no edema.) - Telemetry Telemetry Rhythm: Afib, demand pacer - Labs Result Diagrams: 10/31/17 04:24 10/31/17 04:24 Troponin/CKMB CK-MB (CK-2) 1.3 ng/mL (0-6.6) 10/28/17 18:00 Troponin I 0.023 ng/mL (< 0.028) 10/29/17 05:44 - Assessment/Plan 1. Syncope. 2. Afib, new onset, new diagnosis. 3. Tachy/New syndrome. 4. Aortic stenosis, Mild on echo . 5. S/P PPM placement. 6. DAWSON on CKD, improving now . BLOOD: - We spoke about possible therapies for afib. After discussion we decided we will start full anticoagulation in 2-3 days and then continue amiodarone load. Will see back in 1 month oin the office and re evaluate and if still in afib will plan a VICKIE cardioversion at that point. - Amiodarone 400 mg TID for the next 7 days then change to 200 mg daily. - Will Start Eliquis 2.5 mg BID to be started on Friday11/03/17 - Will stop atenolol and clonidine for now. - Start Coreg at 3.125 mg BID. - Will as he keep a log of his BP's at home and will decide on next visit on his BP meds. - Follow up in 1 month - May discharge home.
[2017-10-31 14:38] VITALS: BP 135/66
[2017-10-31] MEDS ORDERED: Carvedilol 3.125 MG TAB PO SCH (17:00)
--- NOTE | 2017-10-31 17:24 | DIS ---
DATE OF ADMISSION: 10/28/2017 DATE OF DISCHARGE: 10/31/2017 PRIMARY CARE PHYSICIAN: Rosmery Salazar M.D. DISCHARGE DIAGNOSES: 1. Syncope. 2. Symptomatic bradycardia. 3. Newly diagnosed atrial fibrillation. CONDITION OF PATIENT ON THE DAY OF DISCHARGE: Stable. HOSPITAL COURSE: I assessed Mr. Florez on the day of discharge. Please refer to my daily hospitalis t progress note from 10/31/2017 for further details about this [id number] encounter. DISCHARGE MEDICATIONS: 1. Apixaban 2.5 mg 2 times a day to be started on 11/03/2017. 2. Amiodarone 400 mg 3 times a day for 1 week, then 400 mg daily. 3. Levothyroxine 100 mcg daily. 4. Remeron 15 mg at bedtime. HOSPITAL COURSE: Mr. Florez is a pleasant 87-year-old gentleman who was admitted to [facility] on 10/28/2017 following a syncopal episode. He fell and sustained a laceration to his forehead. He required sutures. Cervical spine CT did not show any evidence of acute fracture. He had multilevel cervical degenerative changes. Brain CT without contrast showed a right frontal sc alp hematoma. Carotid Dopplers showed mild bilateral common carotid and proximal internal carotid ar nicole stenosis. He was seen by Cardiology [facility]rology Services. A 2D echocardiogram showed an ejec tion fraction estimated at 60%-65% and atrial fibrillation. He had a moderately dilated left atrium, [id number] mitral regurgitation, heavily-calcified aortic valve, mild aortic valve stenosis, m oderate tricuspid regurgitation, and mildly elevated pulmonary artery pressure. This is newly-diagnosed atrial fibrillation for him. Because of symptomatic bradycardia, he underwen t pacemaker placement by Dr. Johnston on 10/30/2017. He continued to improve and is being discharged denzel e in a stable condition. His atenolol and clonidine are on hold, they will be reassessed by Cardiology Service during follow u p. CONSULTATIONS DURING THIS HOSPITALIZATION: Neurology, Dr. Leila Rodríguez and Cardiology, Dr. Ehsan olmos and Dr. Zulma Johnston. Many thanks for allowing me to participate in your patient's care. Please feel free to contact me wi th any questions or concerns. DISCHARGE DESTINATION: Home. TOTAL AMOUNT OF TIME SPENT COORDINATING THIS DISCHARGE: 32 minutes.
--- NOTE | 2017-10-31 23:34 | ADD-DIS ---
ADDENDUM On the day of discharge, Mr. Florez has a sodium 139, potassium 4.0, carbon dioxide 22, blood urea ni trogen 34 and creatinine 1.53. He has a white count of 6600, hemoglobin 10.1 and platelet count 173, 000. During this hospitalization, he had cholesterol level of 150, triglycerides 87, LDL cholesterol 87, HDL cholesterol 46 and cortisol level of 11.10. He also had orthostatic hypotension, he is advised to wear compression stockings.
== END 2017-10-31 17:02 | disposition home or self-care (01) | DRG 243 ==
LOC: ERS 17:25 → 2NO 19:48
PROVIDERS: ADMIT Internal Medicine; ATTEND Internal Medicine
PROC: 0HQ1XZZ Repair Face Skin, External Approach (ICD-10-PCS; 2017-10-28)
PROC: 0JH606Z Insertion of Pacemaker, Dual Chamber into Chest Subcutaneous Tissue and Fascia, Open Approach (ICD-10-PCS; principal; 2017-10-30)
PROC: 02H63JZ Insertion of Pacemaker Lead into Right Atrium, Percutaneous Approach (ICD-10-PCS; 2017-10-30)
PROC: 02HK3JZ Insertion of Pacemaker Lead into Right Ventricle, Percutaneous Approach (ICD-10-PCS; 2017-10-30)
DX: I49.5 Sick sinus syndrome (principal); N17.9 Acute kidney failure, unspecified; I48.91 Unspecified atrial fibrillation; Z95.1 Presence of aortocoronary bypass graft; S01.111A Laceration without foreign body of right eyelid and periocular area, initial encounter; I12.9 Hypertensive chronic kidney disease with stage 1 through stage 4 chronic kidney disease, or unspecified chronic kidney disease; I95.1 Orthostatic hypotension; I08.3 Combined rheumatic disorders of mitral, aortic and tricuspid valves; W19.XXXA Unspecified fall, initial encounter; E03.9 Hypothyroidism, unspecified; E78.5 Hyperlipidemia, unspecified; N18.3 Chronic kidney disease, stage 3 (moderate)
CPT/HCPCS: 12011; 33208; 36415; 70450; 70551; 71010; 72125; 80048; 80053; 80061; 82533; 82553; 83880; 84484; 85025; 85610; 85730; 90471; 90715; 90732; 93005; 93010; 93306; 93798; 93880; 94760; 96374; A4216; C1785; C1898; G0009; G8978-GP-CK; G8979-GP-CK; G8980-GP-CK; G8987-GO-CI; G8988-GO-CI; G8989-GO-CI; G8996-GN-CH; G8997-GN-CH; J0360; J0690; J1580; J1644; J2001